=== PATIENT | female | born 1945 | race Two or more races ===

== ENCOUNTER 2017-07-06 10:36 | Outpatient (CLI) | payer OTHER | END 2017-07-06 11:00 | disposition home or self-care (01) | LOC: TOM 10:36 | DX: R19.4 Change in bowel habit (principal); R10.84 Generalized abdominal pain; K59.09 Other constipation ==

== ENCOUNTER 2017-11-30 15:17 | Emergency (ER) | payer OTHER ==
[~2017-11-30] VITALS: Ht 167.6 cm; Wt 93.4 kg
[2017-11-30] MEDS ORDERED: RELAFEN (15:41)
[2017-11-30] MEDS ORDERED: METFORMIN HCL500 M2 (15:42)
[2017-11-30] MEDS ORDERED: METOPROLOL ER-1 EAC2 (15:42)
[2017-11-30] MEDS ORDERED: LOSARTAN-HCTZ1 EACH (15:42)
[2017-11-30] MEDS ORDERED: LIPITOR20 MG (15:43)
[2017-11-30] MEDS ORDERED: SYNTHROID100 MCG (15:43)
[2017-11-30] MEDS ORDERED: ALUMINUM POTAS (15:44)
[2017-11-30] MEDS ORDERED: ASPIR 8181 MG (15:44)
[2017-11-30] MEDS ORDERED: CLONAZEPAM0.5 MG (15:46)
[2017-11-30] MEDS ORDERED: TRAZODONE HCL50 MG (15:47)
== END 2017-11-30 22:39 | disposition home or self-care (01) ==
LOC: ER 15:17
DX: K62.5 Hemorrhage of anus and rectum (principal); K52.89 Other specified noninfective gastroenteritis and colitis

== ENCOUNTER 2017-12-28 09:23 | Outpatient (CLI) | payer OTHER ==
[~2017-12-28 09:23] MED LIST: ALUMINUM POTAS; ASPIR 8181 MG; CLONAZEPAM0.5 MG; LIPITOR20 MG; LOSARTAN-HCTZ1 EACH; METFORMIN HCL500 M2; METOPROLOL ER-1 EAC2; RELAFEN; SYNTHROID100 MCG; TRAZODONE HCL50 MG
== END 2017-12-28 09:33 | disposition home or self-care (01) ==
LOC: TOM 09:23
DX: K55.1 Chronic vascular disorders of intestine (principal)
CPT/HCPCS: 74174; Q9965